=== PATIENT | male | born 1955 | race Caucasian/White ===

== ENCOUNTER → 2018-11-12 | Outpatient (CLI) | payer OTHER ==
--- NOTE | 2018-11-12 10:39 | RADIOLOGY REPORT (SQ) ---
EXAM DESCRIPTION: U/S ABD AORTIC SCREENING COMPLETED DATE/TIME: 11/12/2018 9:39 am REASON FOR STUDY: Z13.89 ENCOUNTER FOR SCREENING FOR OTHER DISORDER Z13.89 ENCOUNTER FOR SCREENING FOR OTHER DISORDER COMPARISON: None. TECHNIQUE: Static and dynamic grayscale images acquired of the aorta and stored on PACs. Selected co cristal Doppler and spectral images recorded. LIMITATIONS: None. FINDINGS: AORTIC CALIBER MAXIMAL PROXIMAL: 2.9 x 2.4 cm. MID: 2.9 x 2.7 cm. DISTAL: 2.1 x 2.0 cm. ILIAC DIAMETER RIGHT: 1.6 x 1.5 cm. LEFT: 1.5 x 1.8 cm. OTHER: No other significant finding. IMPRESSION: Mild proximal abdominal aortic ectasia without discrete aneurysm. See follow-up as marlen bañuelos COMMENT: Aortic aneurysm imaging followup: 2.6-2.9 cm Every 5 years* *Based upon the Society for Vascular Surgery Guidelines: J Vasc Surg. 2009 Oct;50(4 Suppl):S2-49 *For aortas of maximum diameter of 2.6-2.9 cm meeting the criteria for AAA (?1.5 x proximal normal se gment) TECHNICAL DOCUMENTATION: JOB ID: [id number] [employer]- All Rights Reserved Reading location - IP/workstation name: [email or web address]
== END ==
LOC: RAD 09:08
PROVIDERS: ATTEND Nurse Practitioner Family
DX: I77.811 Abdominal aortic ectasia (principal); Z13.89 Encounter for screening for other disorder
CPT/HCPCS: 76706